=== PATIENT | female | born 1980 | race Caucasian/White ===

== ENCOUNTER 2017-06-27 13:18 | Day surgery (SDC) | payer OTHER ==
[~2017-06-27] VITALS: Ht 167.6 cm; Wt 87.1 kg
[~2017-06-27 13:18] MED LIST: CIPR-261; PREN-89
[2017-06-27] MEDS ORDERED: DEXAMETHASONE SOD PHOSPHATE 4 MG/ML VIAL IVP ONE (13:19)
[2017-06-27] MEDS ORDERED: KETOROLAC TROMETHAMINE 30 MG VIAL IVP ONE (13:19)
[2017-06-27] MEDS ORDERED: ROCURONIUM BROMIDE 10 MG/ML (ZEMURON) IV ONE (13:19)
[2017-06-27] MEDS ORDERED: ONDANSETRON HCL 4 MG/2 ML VIAL IVP ONE (13:19)
[2017-06-27] MEDS ORDERED: SEVOFLURANE 15 MIN GAS INH ONE (13:19)
[2017-06-27] MEDS ORDERED: MIDAZOLAM HCL 5 MG/5 ML VIAL IVP ONE (13:19)
[2017-06-27] MEDS ORDERED: OXYTOCIN 10 UNIT/ML VIAL IV ONE (13:19)
[2017-06-27] MEDS ORDERED: PROPOFOL 200MG/ 20ML VIAL (DIPRIVAN) IV ONE (13:19)
[2017-06-27] MEDS ORDERED: fentaNYL CITRATE/PF 100 MCG/2 ML AMP IVP ONE (13:19)
[2017-06-27] MEDS ORDERED: CEFAZOLIN SOD 1 GM in D5W 50 ML IV ONE (14:30)
[2017-06-27 14:35] LABS: BASOPHILS % (AUTO) 0.2 % (0.0-2.0); EOSINOPHILS # (AUTO) 0.2 K/uL (0.0-0.4); HEMATOCRIT 43.1 % (36-48); LYMPHOCYTES # (AUTO) 1.9 K/uL (1.0-5.5); LYMPHOCYTES % (AUTO) 27.2 % (20.5-51.5); MEAN CORPUSCULAR HEMOGLOBIN 29 pg (27-31); MEAN CORPUSCULAR HGB CONC 33 % (32-36); MEAN CORPUSCULAR VOLUME 89 fL (79.0-98.0); MONOCYTES # (AUTO) 0.7 K/uL (0.0-1.0); NEUTROPHILS # (AUTO) 4.2 K/uL (1.8-7.7); NEUTROPHILS % (AUTO) 59.6 % (40.0-70.0); PLATELET COUNT (AUTO) 208 K/uL (130-430); RED BLOOD CELL COUNT(AUTO) 4.87 MIL/uL (4.2-6.2); RED CELL DISTRIBUTION WIDTH 12.6 % (9.0-15.0)
[2017-06-27] MEDS ORDERED: LR 1,000 ML IV SCH (15:37)
[2017-06-27] MEDS ORDERED: HYDROmorphone 2 MG/ML VIAL IVP PRN ×2 (15:45)
[2017-06-27] MEDS ORDERED: HYDROmorphone 1 MG INJ. 1 MG/ML AMPUL IVP PRN (15:45)
[2017-06-27] MEDS ORDERED: ONDANSETRON HCL 4 MG/2 ML VIAL IVP PRN (15:45)
[2017-06-27] MEDS ORDERED: OXYCODONE/ACETAMINOPHEN 5-325 TABLET PO PRN (15:45)
[2017-06-27] MEDS ORDERED: HYDROcodone/ACETAMIN 5-325 MG TAB (NORCO/ VICODIN) PO PRN (15:45)
[2017-06-27] MEDS ORDERED: MEPERIDINE HCL/PF 25 MG/ML DISP.SYRIN IVP PRN (15:45)
[2017-06-27] MEDS ORDERED: HYDROmorphone 2 MG/ML VIAL ONE (16:04)
[2017-06-27] MEDS ORDERED: DOXY-4 PO (17:14)
[2017-06-27 17:16] VITALS: BP_SYST 99
== END 2017-06-27 17:30 | disposition home or self-care (01) ==
LOC: SDS 13:18
PROVIDERS: ATTEND Specialist
DX: O03.9 Complete or unspecified spontaneous abortion without complication (principal); Z68.30 Body mass index [BMI] 30.0-30.9, adult; I73.9 Peripheral vascular disease, unspecified; E66.9 Obesity, unspecified
CPT/HCPCS: 36415; 59812; 84703; 85025; 86886; 86900; 86901; 88300; 88305; J0690; J1100; J1170; J1885; J2250; J2405; J2590; J2704; J3010; J7060

== ENCOUNTER 2018-05-08 07:36 | Day surgery (SDC) | payer OTHER ==
[~2018-05-08] VITALS: Ht 167.6 cm; Wt 79.4 kg
[~2018-05-08 07:36] MED LIST changes: -CIPR-261; +DOXY-4 PO; -PREN-89
[2018-05-08 08:40] LABS: BASOPHILS # (AUTO) 0.1 K/uL (0.0-0.2); BASOPHILS % (AUTO) 1.1 % (0.0-2.0); EOSINOPHILS # (AUTO) 0.2 K/uL (0.0-0.4); EOSINOPHILS % (AUTO) 3.1 % (0.0-4.0); HEMATOCRIT 40.5 % (36-48); LYMPHOCYTES # (AUTO) 1.5 K/uL (1.0-5.5); LYMPHOCYTES % (AUTO) 26.6 % (20.5-51.5); MEAN CORPUSCULAR HEMOGLOBIN 31 pg (27-31); MEAN CORPUSCULAR HGB CONC 35 % (32-36); MEAN CORPUSCULAR VOLUME 88 fL (79.0-98.0); MONOCYTES # (AUTO) 0.5 K/uL (0.0-1.0); NEUTROPHILS # (AUTO) 3.4 K/uL (1.8-7.7); NEUTROPHILS % (AUTO) 60.2 % (40.0-70.0); PLATELET COUNT (AUTO) 182 K/uL (130-430); RED BLOOD CELL COUNT(AUTO) 4.58 MIL/uL (4.2-6.2); RED CELL DISTRIBUTION WIDTH 12.3 % (9.0-15.0); WHITE BLOOD COUNT (AUTO) 5.7 K/uL (4.8-10.8)
[2018-05-08] MEDS ORDERED: CEFAZOLIN SOD 1 GM/ ISO 50 ML PREMIX IV ONE (08:45)
[2018-05-08] MEDS ORDERED: fentaNYL CITRATE/PF 100 MCG/2 ML AMP IVP PRN ×2 (09:15)
[2018-05-08] MEDS ORDERED: KETOROLAC TROMETHAMINE 30 MG VIAL IVP PRN (09:15)
[2018-05-08] MEDS ORDERED: ONDANSETRON HCL 4 MG/2 ML VIAL IVP PRN ×2 (09:15→10:45)
[2018-05-08 09:29] LABS: BILIRUBIN,URINE NEGATIVE (NEGATIVE); CLARITY/URINE CLEAR (CLEAR); COLOR,URINE YELLOW (YELLOW); GLUCOSE,URINE NEGATIVE (NEGATIVE); KETONES,URINE NEGATIVE (NEGATIVE); LEUKOCYTE ESTERASE ,URINE TRACE (NEGATIVE); NITRITE, URINE NEGATIVE (NEGATIVE); PROTEIN URINE NEGATIVE (NEGATIVE); UROBILINOGEN,URINE 0.2 (0.2-1.0)
[2018-05-08 09:31] LABS: BLOOD, URINE TRACE (NEGATIVE)
[2018-05-08 10:22] LABS: BACTERIA,URINE FEW /HPF (None Seen); MUCUS,URINE None Seen /LPF (None Seen); WBC,URINE 0-3 /HPF (0-3); YEAST,URINE None Seen /HPF (None Seen)
[2018-05-08] MEDS ORDERED: HYDROcodone/ACETAMIN 5-325 MG TAB (NORCO/ VICODIN) PO PRN (10:45)
[2018-05-08] MEDS ORDERED: fentaNYL CITRATE/PF 100 MCG/2 ML AMP ONE (10:51)
[2018-05-08] MEDS ORDERED: MIDAZOLAM HCL 5 MG/ML VIAL (VERSED) IV ONE (10:51)
[2018-05-08] MEDS ORDERED: LR 1,000 ML IV.SOLN IV ONE (10:51)
[2018-05-08] MEDS ORDERED: NS IRRIG SOLN 1000 ML IR ONE (10:51)
[2018-05-08] MEDS ORDERED: CEFAZOLIN 2 GM IVPB PREMIX 50 ML IV ONE (10:51)
[2018-05-08] MEDS ORDERED: SEVOFLURANE 15 MIN GAS INH ONE (10:51)
[2018-05-08] MEDS ORDERED: PROPOFOL 200MG/ 20ML VIAL (DIPRIVAN) IV ONE (10:51)
[2018-05-08] MEDS ORDERED: KETOROLAC TROMETHAMINE 30 MG VIAL ONE (11:13)
[2018-05-08] MEDS ORDERED: HYDROcodone/ACETAMIN 5-325 MG TAB (NORCO/ VICODIN) ONE (11:36)
[2018-05-08 14:12] VITALS: BP_SYST 98
== END 2018-05-08 12:20 | disposition home or self-care (01) ==
LOC: SDS 07:36 → SMU 12:00 → SDS 12:20
PROVIDERS: ATTEND Specialist
DX: O03.9 Complete or unspecified spontaneous abortion without complication (principal)
CPT/HCPCS: 36415; 81000-TC; 85025; 88305; J0690; J1885; J2250; J2704; J3010; J7120